=== PATIENT | male | born 1965 | race Caucasian/White ===

== ENCOUNTER 2018-05-04 17:53 | Inpatient (IN) | payer MEDICAID ==
[~2018-05-04] VITALS: Ht 170.2 cm; Wt 100.4 kg
--- NOTE | 2018-05-04 18:02 | NUR ---
ADMITTING CALLED TRIAGE TO REPORT PT WAS ON THE FLOOR, UPON ASSESSMENT PT AWAKE AND ALERT, PT ON GROUND BY ADMITTING WINDOW, ASSISTED TO WC AND EKG IN PROGRESS WHILE IN TRIAGE. PT REPORTS, "I ATE TOO MUCH PAZOLE."
[2018-05-04 18:04] VITALS: Ht 170.2 cm; Wt 100.4 kg
--- NOTE | 2018-05-04 18:16 | NUR ---
PT PRESENTS TO ED WITH C/O NON-RADIATING CHEST PAIN THAT STARTED YESTERDAY AND IS CONSTANT. PT DESCRIBES PAIN STABBING AND RATES PAIN AT 10/10 ON PAIN SCALE. AT BEDSIDE PT IS AAOX4 RESPS E/U, SKIN IS PINK, WARM AND DRY. PT SPEAKING IN FULL SENTANCES. PT PLACED ON FULL CM. PT ORIENTED TO ROOM AND USE OF CALL BOWEN. BED IN LOWEST POSITION WITH BED RAILS UP X2 (WITH CONSENT OF PT) DR. PHILLIP COMPLETED MSE.
--- NOTE | 2018-05-04 18:31 | NUR ---
PT REPORTS HAVING A MONSTER AND MOACH FROM [place] WITH A DOUBLE-SHOT OF ESPRESSO.
--- NOTE | 2018-05-04 19:14 | NUR ---
US AT BEDSIDE.
--- NOTE | 2018-05-04 19:21 | NUR ---
PT PROVIDED WITH URINAL. OUTPUT APPROX 500 ML CLEAR YELLOW URINE AT THIS TIME.
[2018-05-04 19:24] LABS: CALCIUM 6.4 mg/dL (8.5-10.1); CARBON DIOXIDE 16.1 mmol/L (21-32); CHLORIDE SERUM 92 mmol/L (98-107); CREATININE SERUM 0.8 mg/dL (0.7-1.3); GFR1 > 60 mL/min; GLUCOSE SERUM 363 mg/dL (74-106); SODIUM SERUM 127 mmol/L (136-145)
[2018-05-04 19:34] LABS: microscopic required? YES; urine erythrocyte 1+ (NEGATIVE)
[2018-05-04 19:35] LABS: AMYLASE 74 U/L (25-115); AST/SGOT 20 U/L (15-37); BILIRUBIN TOTAL 1.31 mg/dL (0.20-1.00); LIPASE 627 IU/L (73-393); MAGNESIUM 2.1 mg/dL (1.8-2.4); T4(THYROXINE) 7.6 ug/dL (4.7-13.3)
[2018-05-04 19:38] LABS: AMPHETAMINE QUAL UR NONE DETECTED (See below)
[2018-05-04 19:41] LABS: CHOLESTEROL 275 mg/dL (<200); HDL CHOLESTEROL 22 mg/dL (40-60)
[2018-05-04 19:43] LABS: POTASSIUM SERUM 3.9 mmol/L (3.5-5.1)
--- NOTE | 2018-05-04 19:54 | NUR ---
PT OUTPUT ADDITIONAL 300 ML CLEAR YELLOW URINE
--- NOTE | 2018-05-04 19:57 | NUR ---
NITRO SL GIVEN X1 AT THIS TIME.
--- NOTE | 2018-05-04 20:05 | NUR ---
ANOTHER NITRO SL GIVEN AT THIS TIME; TOTAL OF 2 TOTAL AT THIS TIME.
--- NOTE | 2018-05-04 20:15 | NUR ---
PT STS HEAD, NECK, BACK, AND ABD PAIN. MD MADE AWARE. PT REMAINS CONNECTED TO FULL CM.
--- NOTE | 2018-05-04 20:35 | NUR ---
CALLED FARIHA TO GIVE REPORT, WAS TOLD WILL BE CALLED BACK.
--- NOTE | 2018-05-04 20:50 | NUR ---
REPORT GIVEN TO FARIHA ENAMORADO TO ASSUME CARE.
--- NOTE | 2018-05-04 21:21 | NUR ---
PT EN ROUTE TO [facility] AT THIS TIME.
[2018-05-04 21:28] LABS: ALBUMIN 3.7 g/dL (3.4-5.0)
[2018-05-04 21:33] VITALS: BP 148/75
--- NOTE | 2018-05-04 21:36 | NUR ---
RECEIVED PT FROM ED VIA PEPE. ORIENTED PT TO ROOM AND SURROUNDINGS. IV NOTED TO RH PATENT AND INTACT. INSTRUCTED PT ON THE USE OF CALL LIGHT FOR ASSISTANCE. ENDORSED PT TO PRIMARY NURSE FARIHA
--- NOTE | 2018-05-04 22:00 | NUR ---
RESTING IN BED, NEW ADM. FROM ER. ALERT AND ORIENTED. ABLE TO VERBALIZE NEEDS. RESP. EVEN AND UNLABORED. ON ROOM AIR, LUNG SOUNDS CLEAR BILAT. NO TELE, DENIES CP OR PRESSURE. AFEBRILE AND VITAL SIGNS STABLE.ABD. SOFT, NON DISTENDED, BS ACTIVE, NO N/V NOTED. SKIN WARM AND DRY TO TOUCH, INTACT AND NO EDEMA NOTED. AMBULATORY. STARTED ON IVF, NS AT 150ML/HR,INFUSING VIA RH, SITE CLEAR. NO COMPLAINTS NOTED AT THIS TIME. CALL LIGHT WITHIN REACH. WILL CONTINUE TO MONITOR.
[2018-05-04 22:23] LABS: ALKALINE PHOSPHATASE 166 U/L (46-116)
--- NOTE | 2018-05-05 04:44 | NUR ---
COMPLAINED OF ABD. PAIN, 5/10, MEDICATED WITH NORCO PO ORDERED. WILL CONTINUE TO MONITOR.
[2018-05-05 05:43] VITALS: BP 144/85
--- NOTE | 2018-05-05 06:34 | NUR ---
NO COMPLAINTS NOTED AT THIS TIME. AFEBRILE AND VITAL SIGNS STABLE.RESP. EVEN AND UNLABORED. NO ACUTE DISTRESS NOTED. IVF INTACT AND INFUSING WELL, SITE CLEAR. VOIDING FREELY. KEPT COMFORTABLE. WILL ENDORSE TO INCOMING NURSE.
[2018-05-05 06:37] LABS: BASOPHIL % 0.2 % (0-2); PLATELET COUNT 295 x10^3mcL (130-400); RED CELL DISTRIBUTION WIDTH 14.3 % (11.5-14.5)
[2018-05-05 07:11] LABS: CALCIUM 7.9 mg/dL (8.5-10.1); CARBON DIOXIDE 22.3 mmol/L (21-32); CHLORIDE SERUM 97 mmol/L (98-107); CREATININE SERUM 0.9 mg/dL (0.7-1.3); GFR1 > 60 mL/min; GLUCOSE SERUM 332 mg/dL (74-106); LIPASE 470 IU/L (73-393); POTASSIUM SERUM 3.2 mmol/L (3.5-5.1); SODIUM SERUM 133 mmol/L (136-145)
[2018-05-05 07:55] LABS: TOTAL PROTEIN, SERUM 6.7 g/dL (6.4-8.2)
--- NOTE | 2018-05-05 07:55 | NUR ---
AWAKE,ALERT AND ORIENTED,DENIES ANY ABD. PAIN,MONICO CLEAR LIQUID NO N/V NOTED.CALL LIGHT W/ IN REACH CONT. IV FLUIDS A SORDERED.WILL CONT.PLAN OF CARE.
[2018-05-05 08:11] VITALS: BP 166/86
[2018-05-05 09:55] LABS: ALT/SGPT 22 U/L (16-63)
--- NOTE | 2018-05-05 11:25 | NUR ---
PT. C/O ABD. PAIN AT THIS TIME AND MEDICATED W/ NORCO ORDERED.MADE PT. COMFORTABLE IN BED. CALL LIGHT W/ IN REACH.CONT. IV FLUIDS ORDERED.
[2018-05-05 12:08] VITALS: BP 150/90
--- NOTE | 2018-05-05 14:00 | NUR ---
PT. RESTING COMFORTABLY IN BED. DENIES ANY ABD.PAIN AT THIS TIME. CALL LIGHT W/ IN REACH.
[2018-05-05 16:16] VITALS: BP 156/90
--- NOTE | 2018-05-05 20:00 | NUR ---
RECEIVED PT IN BED AAOX4 , PT DENY PAIN AT THE MOMENT , LUNG SOUNDS CTA , ABD SOFT BS ACTIVE X4, PT DENY PAIN A THE MOMENT . PIV INTACT INFUSING NS AT ML/HR , CALL LIGHT WITHIN PT'S REACH , WILL CON'T TO MONITOR AND ASSIST PT WITH CARE .
[2018-05-05 21:11] VITALS: BP 172/107
--- NOTE | 2018-05-05 23:13 | NUR ---
BP 172/107 DR CANDELARIO AWARE .
--- NOTE | 2018-05-06 01:16 | NUR ---
BP 158/101 HR 82 HYDRALAZINE 10MG GIVEN PO , WILL CON;T TO MONITOR PT .
--- NOTE | 2018-05-06 03:42 | NUR ---
PT'S IN BED AWAKE WATCHING TV ,POST BP MEDS WENT DOEN TO 156/88. WILL CON';T TO MONITOR PT .
[2018-05-06 04:35] VITALS: BP 150/94
--- NOTE | 2018-05-06 06:26 | NUR ---
NO CHANGES OF CONDITION NOTED, ALL DUE MEDS GIVNE NO REACTION NOTED, PIV INTACT INFUSING WELL .
[2018-05-06 06:28] LABS: ALKALINE PHOSPHATASE 127 U/L (46-116); ALT/SGPT 27 U/L (16-63); AST/SGOT 14 U/L (15-37); BILIRUBIN TOTAL 0.3 mg/dL (0.20-1.00); CALCIUM 8.2 mg/dL (8.5-10.1); CARBON DIOXIDE 21.6 mmol/L (21-32); CHLORIDE SERUM 101 mmol/L (98-107); CREATININE SERUM 0.8 mg/dL (0.7-1.3); GFR1 > 60 mL/min; GLUCOSE SERUM 198 mg/dL (74-106); LIPASE 266 IU/L (73-393); MAGNESIUM 1.9 mg/dL (1.8-2.4); POTASSIUM SERUM 3.6 mmol/L (3.5-5.1); SODIUM SERUM 135 mmol/L (136-145); TOTAL PROTEIN, SERUM 7.4 g/dL (6.4-8.2)
[2018-05-06 06:40] LABS: BASOPHIL % 0.4 % (0-2); PLATELET COUNT 266 x10^3mcL (130-400); RED CELL DISTRIBUTION WIDTH 14.1 % (11.5-14.5)
[2018-05-06 06:54] LABS: ALBUMIN 3.1 g/dL (3.4-5.0)
--- NOTE | 2018-05-06 07:10 | NUR ---
SEEN IN BED AAOX4. NO SOB OR RESP DISTRESS ON ROOM AIR. DENIES PAIN. MED/SURG PATIENT. ON CCHO DIET. STATED ABLE TO AMBULATE TO USE THE BATHROOM WITHOUT ANY DIFFICULTY. IVF NS TO RFA INFUSING WELL AT 80ML/HR. PLAN OF CARE DISCUSSED. CALL LIGHT PLACED WITHIN EASY REACH. SIDERAILS UP X2.
[2018-05-06 08:46] VITALS: BP 152/86
--- NOTE | 2018-05-06 09:30 | NUR ---
BP 152/89, HR 86, DENIES CHEST PAIN OR HEADACHE, LISINOPRIL PO GIVEN, WILL CONTINUE TO MONITOR.
[2018-05-06] MEDS ORDERED: ZESTRIL20 MG PO (10:11)
[2018-05-06] MEDS ORDERED: LOP600 PO (10:11)
[2018-05-06] MEDS ORDERED: NOR5 PO (10:11)
[2018-05-06 10:24] VITALS: BP 152/86
--- NOTE | 2018-05-06 12:19 | NUR ---
DISCHARGE INSTRUCTION/PRESCRIPTION EXPLAINED AND GIVEN TO PATIENT WHO IS AWAKE,ALERT, ORIENTED X4. DENIES PAIN. S/L TO RT HAND AND RFA REMOVED NO REDNESS OR SIGNS OF INFECTION NOTED. AWAITING FOR FAMILY MEMBER TO PICK HIM UP.
--- NOTE | 2018-05-06 12:48 | NUR ---
ACCOMPANIED BY SANDEE AND HIS FAMILY MEMBER TO LOBBY. CONDITION STABLE UPON DISCHARGE.
== END 2018-05-06 12:45 | disposition home or self-care (01) | DRG 282 ==
LOC: ED 17:53 → MU 20:15
PROVIDERS: Emergency Medicine; ADMIT Internal Medicine
DX: K85.90 Acute pancreatitis without necrosis or infection, unspecified (principal); N17.0 Acute kidney failure with tubular necrosis; E11.65 Type 2 diabetes mellitus with hyperglycemia; E78.1 Pure hyperglyceridemia; I16.1 Hypertensive emergency; E87.1 Hypo-osmolality and hyponatremia
CPT/HCPCS: 82962; 83880; 90658; G0480; J1815; J1940; J3480; J3490; J7030; Q0092